=== PATIENT | female | born 1935 | race African-American/Black ===

== ENCOUNTER → 2018-06-12 | Outpatient (CLI) | payer OTHER | LOC: HYPER 05-14 14:09 | DX: T87.89 Other complications of amputation stump (principal); I70.235 Atherosclerosis of native arteries of right leg with ulceration of other part of foot; L97.513 Non-pressure chronic ulcer of other part of right foot with necrosis of muscle; I70.243 Atherosclerosis of native arteries of left leg with ulceration of ankle; L97.322 Non-pressure chronic ulcer of left ankle with fat layer exposed; L97.812 Non-pressure chronic ulcer of other part of right lower leg with fat layer exposed; L89.152 Pressure ulcer of sacral region, stage 2; L89.322 Pressure ulcer of left buttock, stage 2; E43 Unspecified severe protein-calorie malnutrition; B95.5 Unspecified streptococcus as the cause of diseases classified elsewhere; G81.92 Hemiplegia, unspecified affecting left dominant side; G45.9 Transient cerebral ischemic attack, unspecified; I50.30 Unspecified diastolic (congestive) heart failure; I25.10 Atherosclerotic heart disease of native coronary artery without angina pectoris; K50.918 Crohn's disease, unspecified, with other complication; N18.6 End stage renal disease; M32.9 Systemic lupus erythematosus, unspecified; Z93.2 Ileostomy status; Z79.01 Long term (current) use of anticoagulants; Z79.84 Long term (current) use of oral hypoglycemic drugs; Z92.25 Personal history of immunosuppression therapy; Y83.5 Amputation of limb(s) as the cause of abnormal reaction of the patient, or of later complication, without mention of misadventure at the time of the procedure ==

== ENCOUNTER → 2018-07-31 | Outpatient (CLI) | payer OTHER | LOC: HYPER 06:56 | DX: T87.89 Other complications of amputation stump (principal); I70.235 Atherosclerosis of native arteries of right leg with ulceration of other part of foot; L97.511 Non-pressure chronic ulcer of other part of right foot limited to breakdown of skin; L97.411 Non-pressure chronic ulcer of right heel and midfoot limited to breakdown of skin; L89.152 Pressure ulcer of sacral region, stage 2; L98.491 Non-pressure chronic ulcer of skin of other sites limited to breakdown of skin; L89.322 Pressure ulcer of left buttock, stage 2; L98.411 Non-pressure chronic ulcer of buttock limited to breakdown of skin; N18.6 End stage renal disease; I50.30 Unspecified diastolic (congestive) heart failure; I25.10 Atherosclerotic heart disease of native coronary artery without angina pectoris; M32.9 Systemic lupus erythematosus, unspecified; K50.918 Crohn's disease, unspecified, with other complication; B95.5 Unspecified streptococcus as the cause of diseases classified elsewhere; G81.92 Hemiplegia, unspecified affecting left dominant side; E43 Unspecified severe protein-calorie malnutrition; G45.9 Transient cerebral ischemic attack, unspecified; L84 Corns and callosities; Z86.73 Personal history of transient ischemic attack (TIA), and cerebral infarction without residual deficits; Z93.2 Ileostomy status; Z79.01 Long term (current) use of anticoagulants; Z79.84 Long term (current) use of oral hypoglycemic drugs; Z92.25 Personal history of immunosuppression therapy; Y83.5 Amputation of limb(s) as the cause of abnormal reaction of the patient, or of later complication, without mention of misadventure at the time of the procedure ==

== ENCOUNTER → 2018-08-21 | Outpatient (CLI) | payer OTHER | LOC: HYPER 06:56 | DX: T87.89 Other complications of amputation stump (principal); I70.235 Atherosclerosis of native arteries of right leg with ulceration of other part of foot; L97.511 Non-pressure chronic ulcer of other part of right foot limited to breakdown of skin; L89.152 Pressure ulcer of sacral region, stage 2; I70.234 Atherosclerosis of native arteries of right leg with ulceration of heel and midfoot; L97.412 Non-pressure chronic ulcer of right heel and midfoot with fat layer exposed; L84 Corns and callosities; L97.812 Non-pressure chronic ulcer of other part of right lower leg with fat layer exposed; L89.322 Pressure ulcer of left buttock, stage 2; E43 Unspecified severe protein-calorie malnutrition; N18.6 End stage renal disease; I50.30 Unspecified diastolic (congestive) heart failure; M32.9 Systemic lupus erythematosus, unspecified; K50.918 Crohn's disease, unspecified, with other complication; G81.92 Hemiplegia, unspecified affecting left dominant side; B95.5 Unspecified streptococcus as the cause of diseases classified elsewhere; I25.10 Atherosclerotic heart disease of native coronary artery without angina pectoris; G45.9 Transient cerebral ischemic attack, unspecified; Z92.25 Personal history of immunosuppression therapy; Z89.421 Acquired absence of other right toe(s); Z93.2 Ileostomy status; Z79.01 Long term (current) use of anticoagulants; Z79.84 Long term (current) use of oral hypoglycemic drugs; Z86.73 Personal history of transient ischemic attack (TIA), and cerebral infarction without residual deficits; Y83.5 Amputation of limb(s) as the cause of abnormal reaction of the patient, or of later complication, without mention of misadventure at the time of the procedure ==

== ENCOUNTER → 2018-09-04 | Outpatient (CLI) | payer OTHER | LOC: HYPER 07:06 | DX: T81.89XD Other complications of procedures, not elsewhere classified, subsequent encounter (principal); I70.235 Atherosclerosis of native arteries of right leg with ulceration of other part of foot; L97.511 Non-pressure chronic ulcer of other part of right foot limited to breakdown of skin; I70.234 Atherosclerosis of native arteries of right leg with ulceration of heel and midfoot; L97.412 Non-pressure chronic ulcer of right heel and midfoot with fat layer exposed; L97.812 Non-pressure chronic ulcer of other part of right lower leg with fat layer exposed; L89.322 Pressure ulcer of left buttock, stage 2; L84 Corns and callosities; I13.2 Hypertensive heart and chronic kidney disease with heart failure and with stage 5 chronic kidney disease, or end stage renal disease; N18.6 End stage renal disease; I50.30 Unspecified diastolic (congestive) heart failure; E43 Unspecified severe protein-calorie malnutrition; M32.9 Systemic lupus erythematosus, unspecified; K50.918 Crohn's disease, unspecified, with other complication; G81.92 Hemiplegia, unspecified affecting left dominant side; I25.10 Atherosclerotic heart disease of native coronary artery without angina pectoris; G45.9 Transient cerebral ischemic attack, unspecified; Z86.73 Personal history of transient ischemic attack (TIA), and cerebral infarction without residual deficits; Z79.01 Long term (current) use of anticoagulants; Z79.84 Long term (current) use of oral hypoglycemic drugs; Z92.25 Personal history of immunosuppression therapy; Z93.2 Ileostomy status; Z87.01 Personal history of pneumonia (recurrent); Y83.8 Other surgical procedures as the cause of abnormal reaction of the patient, or of later complication, without mention of misadventure at the time of the procedure ==

== ENCOUNTER → 2018-09-18 | Outpatient (CLI) | payer OTHER | LOC: HYPER 06:40 | DX: T87.89 Other complications of amputation stump (principal); T81.89XD Other complications of procedures, not elsewhere classified, subsequent encounter; I70.234 Atherosclerosis of native arteries of right leg with ulceration of heel and midfoot; L97.412 Non-pressure chronic ulcer of right heel and midfoot with fat layer exposed; I70.235 Atherosclerosis of native arteries of right leg with ulceration of other part of foot; L97.511 Non-pressure chronic ulcer of other part of right foot limited to breakdown of skin; L89.322 Pressure ulcer of left buttock, stage 2; L84 Corns and callosities; N18.6 End stage renal disease; I50.30 Unspecified diastolic (congestive) heart failure; I25.10 Atherosclerotic heart disease of native coronary artery without angina pectoris; M32.9 Systemic lupus erythematosus, unspecified; K50.918 Crohn's disease, unspecified, with other complication; E43 Unspecified severe protein-calorie malnutrition; G81.92 Hemiplegia, unspecified affecting left dominant side; B95.5 Unspecified streptococcus as the cause of diseases classified elsewhere; G45.9 Transient cerebral ischemic attack, unspecified; Z93.2 Ileostomy status; Z79.01 Long term (current) use of anticoagulants; Z79.84 Long term (current) use of oral hypoglycemic drugs; Z92.25 Personal history of immunosuppression therapy; Z89.411 Acquired absence of right great toe; Z89.421 Acquired absence of other right toe(s); Z68.21 Body mass index [BMI] 21.0-21.9, adult; Z86.73 Personal history of transient ischemic attack (TIA), and cerebral infarction without residual deficits; Z87.01 Personal history of pneumonia (recurrent); Y83.5 Amputation of limb(s) as the cause of abnormal reaction of the patient, or of later complication, without mention of misadventure at the time of the procedure; Y83.8 Other surgical procedures as the cause of abnormal reaction of the patient, or of later complication, without mention of misadventure at the time of the procedure ==

== ENCOUNTER → 2018-10-09 | Outpatient (CLI) | payer OTHER | LOC: HYPER 06:29 | DX: T87.89 Other complications of amputation stump (principal); I70.234 Atherosclerosis of native arteries of right leg with ulceration of heel and midfoot; L97.412 Non-pressure chronic ulcer of right heel and midfoot with fat layer exposed; I70.235 Atherosclerosis of native arteries of right leg with ulceration of other part of foot; L97.511 Non-pressure chronic ulcer of other part of right foot limited to breakdown of skin; L97.812 Non-pressure chronic ulcer of other part of right lower leg with fat layer exposed; L89.322 Pressure ulcer of left buttock, stage 2; E11.51 Type 2 diabetes mellitus with diabetic peripheral angiopathy without gangrene; E43 Unspecified severe protein-calorie malnutrition; N18.6 End stage renal disease; I50.30 Unspecified diastolic (congestive) heart failure; I25.10 Atherosclerotic heart disease of native coronary artery without angina pectoris; L84 Corns and callosities; M32.9 Systemic lupus erythematosus, unspecified; K50.918 Crohn's disease, unspecified, with other complication; G81.92 Hemiplegia, unspecified affecting left dominant side; G45.9 Transient cerebral ischemic attack, unspecified; B95.5 Unspecified streptococcus as the cause of diseases classified elsewhere; Z86.73 Personal history of transient ischemic attack (TIA), and cerebral infarction without residual deficits; Z87.01 Personal history of pneumonia (recurrent); Z89.411 Acquired absence of right great toe; Z89.421 Acquired absence of other right toe(s); Z93.2 Ileostomy status; Z79.01 Long term (current) use of anticoagulants; Z79.84 Long term (current) use of oral hypoglycemic drugs; Z92.25 Personal history of immunosuppression therapy; Y83.5 Amputation of limb(s) as the cause of abnormal reaction of the patient, or of later complication, without mention of misadventure at the time of the procedure ==

== ENCOUNTER → 2018-10-30 | Outpatient (CLI) | payer OTHER | LOC: HYPER 06:45 | DX: T87.89 Other complications of amputation stump (principal); I70.235 Atherosclerosis of native arteries of right leg with ulceration of other part of foot; L97.512 Non-pressure chronic ulcer of other part of right foot with fat layer exposed; L89.322 Pressure ulcer of left buttock, stage 2; L97.412 Non-pressure chronic ulcer of right heel and midfoot with fat layer exposed; L97.812 Non-pressure chronic ulcer of other part of right lower leg with fat layer exposed; L84 Corns and callosities; E43 Unspecified severe protein-calorie malnutrition; N18.6 End stage renal disease; M32.9 Systemic lupus erythematosus, unspecified; G81.92 Hemiplegia, unspecified affecting left dominant side; B95.5 Unspecified streptococcus as the cause of diseases classified elsewhere; I50.30 Unspecified diastolic (congestive) heart failure; I25.10 Atherosclerotic heart disease of native coronary artery without angina pectoris; G45.9 Transient cerebral ischemic attack, unspecified; G81.90 Hemiplegia, unspecified affecting unspecified side; K50.919 Crohn's disease, unspecified, with unspecified complications; Z93.2 Ileostomy status; Z89.411 Acquired absence of right great toe; Z89.421 Acquired absence of other right toe(s); Z79.01 Long term (current) use of anticoagulants; Z92.25 Personal history of immunosuppression therapy; Z79.84 Long term (current) use of oral hypoglycemic drugs; Y83.5 Amputation of limb(s) as the cause of abnormal reaction of the patient, or of later complication, without mention of misadventure at the time of the procedure ==

== ENCOUNTER → 2018-11-15 | Outpatient (CLI) | payer OTHER | LOC: HYPER 06:52 | DX: T87.89 Other complications of amputation stump (principal); I70.234 Atherosclerosis of native arteries of right leg with ulceration of heel and midfoot; L97.412 Non-pressure chronic ulcer of right heel and midfoot with fat layer exposed; L97.812 Non-pressure chronic ulcer of other part of right lower leg with fat layer exposed; L89.322 Pressure ulcer of left buttock, stage 2; N18.6 End stage renal disease; L84 Corns and callosities; M32.9 Systemic lupus erythematosus, unspecified; K50.918 Crohn's disease, unspecified, with other complication; I50.30 Unspecified diastolic (congestive) heart failure; I25.10 Atherosclerotic heart disease of native coronary artery without angina pectoris; G45.9 Transient cerebral ischemic attack, unspecified; G81.92 Hemiplegia, unspecified affecting left dominant side; B95.5 Unspecified streptococcus as the cause of diseases classified elsewhere; Z86.73 Personal history of transient ischemic attack (TIA), and cerebral infarction without residual deficits; Z93.2 Ileostomy status; Z79.01 Long term (current) use of anticoagulants; Z79.84 Long term (current) use of oral hypoglycemic drugs; Z92.25 Personal history of immunosuppression therapy; Z87.01 Personal history of pneumonia (recurrent); Y83.5 Amputation of limb(s) as the cause of abnormal reaction of the patient, or of later complication, without mention of misadventure at the time of the procedure ==

== ENCOUNTER → 2018-11-29 | Outpatient (CLI) | payer OTHER | LOC: HYPER 06:43 | DX: T87.89 Other complications of amputation stump (principal); I70.235 Atherosclerosis of native arteries of right leg with ulceration of other part of foot; L97.511 Non-pressure chronic ulcer of other part of right foot limited to breakdown of skin; L97.421 Non-pressure chronic ulcer of left heel and midfoot limited to breakdown of skin; L89.322 Pressure ulcer of left buttock, stage 2; L97.812 Non-pressure chronic ulcer of other part of right lower leg with fat layer exposed; I50.30 Unspecified diastolic (congestive) heart failure; N18.6 End stage renal disease; I25.10 Atherosclerotic heart disease of native coronary artery without angina pectoris; E43 Unspecified severe protein-calorie malnutrition; G81.92 Hemiplegia, unspecified affecting left dominant side; L84 Corns and callosities; B95.5 Unspecified streptococcus as the cause of diseases classified elsewhere; M32.9 Systemic lupus erythematosus, unspecified; K50.918 Crohn's disease, unspecified, with other complication; G45.9 Transient cerebral ischemic attack, unspecified; Z86.73 Personal history of transient ischemic attack (TIA), and cerebral infarction without residual deficits; Z92.25 Personal history of immunosuppression therapy; Z89.411 Acquired absence of right great toe; Z89.421 Acquired absence of other right toe(s); Z93.2 Ileostomy status; Z79.01 Long term (current) use of anticoagulants; Z79.84 Long term (current) use of oral hypoglycemic drugs; Z87.01 Personal history of pneumonia (recurrent); Y83.5 Amputation of limb(s) as the cause of abnormal reaction of the patient, or of later complication, without mention of misadventure at the time of the procedure ==

== ENCOUNTER → 2019-09-05 | Outpatient (CLI) | payer OTHER | LOC: HYPER 08:01 | PROVIDERS: ATTEND Emergency Medicine | DX: I70.245 Atherosclerosis of native arteries of left leg with ulceration of other part of foot (principal); L97.521 Non-pressure chronic ulcer of other part of left foot limited to breakdown of skin; L89.322 Pressure ulcer of left buttock, stage 2; I70.235 Atherosclerosis of native arteries of right leg with ulceration of other part of foot; L97.511 Non-pressure chronic ulcer of other part of right foot limited to breakdown of skin; S91.312A Laceration without foreign body, left foot, initial encounter; L84 Corns and callosities; M32.9 Systemic lupus erythematosus, unspecified; N18.6 End stage renal disease; K50.918 Crohn's disease, unspecified, with other complication; G81.92 Hemiplegia, unspecified affecting left dominant side; I50.30 Unspecified diastolic (congestive) heart failure; G45.9 Transient cerebral ischemic attack, unspecified; Z93.2 Ileostomy status; Z92.25 Personal history of immunosuppression therapy; Z79.82 Long term (current) use of aspirin; Z95.4 Presence of other heart-valve replacement; Z79.01 Long term (current) use of anticoagulants; X58.XXXA Exposure to other specified factors, initial encounter; Y93.89 Activity, other specified; Y92.89 Other specified places as the place of occurrence of the external cause; Y99.8 Other external cause status ==

== ENCOUNTER → 2019-12-03 | Outpatient (CLI) | payer OTHER | LOC: HYPER 14:20 | PROVIDERS: ATTEND Emergency Medicine | DX: T81.31XA Disruption of external operation (surgical) wound, not elsewhere classified, initial encounter (principal); S91.312D Laceration without foreign body, left foot, subsequent encounter; E46 Unspecified protein-calorie malnutrition; G81.92 Hemiplegia, unspecified affecting left dominant side; G45.9 Transient cerebral ischemic attack, unspecified; N18.6 End stage renal disease; I73.9 Peripheral vascular disease, unspecified; I50.30 Unspecified diastolic (congestive) heart failure; K50.918 Crohn's disease, unspecified, with other complication; M32.9 Systemic lupus erythematosus, unspecified; Z93.2 Ileostomy status; Z92.25 Personal history of immunosuppression therapy; Z89.419 Acquired absence of unspecified great toe; Z86.73 Personal history of transient ischemic attack (TIA), and cerebral infarction without residual deficits; Z79.01 Long term (current) use of anticoagulants; Z79.84 Long term (current) use of oral hypoglycemic drugs; Z95.828 Presence of other vascular implants and grafts; Z95.4 Presence of other heart-valve replacement; Y92.238 Other place in hospital as the place of occurrence of the external cause; Y83.8 Other surgical procedures as the cause of abnormal reaction of the patient, or of later complication, without mention of misadventure at the time of the procedure ==